=== PATIENT | male | born 1985 | race Caucasian/White ===

== ENCOUNTER 2024-12-22 08:08 | Outpatient (CLI) | payer BC, SELFPAY | END 2024-12-22 08:09 | disposition home or self-care (01) | LOC: NFLDREF 12-29 00:44 | PROVIDERS: Visit Provider Family Medicine | DX: E78.00 Pure hypercholesterolemia, unspecified (principal); R68.82 Decreased libido; R53.83 Other fatigue | CPT/HCPCS: 80061; 80076; 84270; 84402; 84403 ==

== ENCOUNTER 2024-12-31 15:30 | Outpatient (RCR) | payer BC, SELFPAY | END 2025-03-03 12:22 | disposition home or self-care (01) | PROVIDERS: PCP Family Medicine; Visit Provider Family Medicine | DX: M62.838 Other muscle spasm (principal); R52 Pain, unspecified; M25.9 Joint disorder, unspecified; Z51.89 Encounter for other specified aftercare | CPT/HCPCS: 97110; 97140; 97161 ==